=== PATIENT | female | born 1980 | race Caucasian/White ===

== ENCOUNTER 2018-03-09 20:28 | Emergency (ER) | payer OTHER ==
[~2018-03-09] VITALS: Ht 162.6 cm; Wt 73.5 kg
[2018-03-09] MEDS ORDERED: IV NORMAL SALINE 1,000ML 1,000 ML IV ONE (20:45)
[2018-03-09] MEDS ORDERED: KETOROLAC 30 MG/ML VIAL. IV ONE (20:45)
--- NOTE | 2018-03-09 20:53 | PHYS DOC ---
Past History Additional Past Medical Histor: Ovarian cyst, Hx of bowel obstruction at Past Surgical History: Tubal ligation Additional Past Surgical Histo: Abdominal surgery for bowel obstruction at Smoking: Non-smoker Alcohol Use: None Drug Use: None Adult General Chief Complaint Chief Complaint: BACK PAIN - NO INJURY HPI HPI 37-year-old female presents with left pelvic pain x 4 months which became worse today. Patient reports history of known "cyst between her ovary and rectum ". Patient reports has been following with CIRCULAR CLERK at . Patient reports the cyst was recently drained on 02/11/2018. Patient reports has been discussing with her CIRCULAR CLERK regarding removing the cyst. Denies fever or chills. Denies vaginal bleeding or discharge. Denies . Reports history of prior tubal ligation. Reports last menstrual period one week ago. Denies trauma. Reports took ibuprofen earlier today. Reports pain current too uncomfortable and therefore presents to the ED for evaluation. Review of Systems Review of Systems Constitutional: Denies fever or chills [] Respiratory: Denies cough or shortness of breath [] Cardiovascular: Denies chest pain or palpitations GI: Reports left lower abdominal pain; denies nausea, vomiting, or diarrhea [] : Denies dysuria or hematuria [] Musculoskeletal: Reports some back pain; denies joint pain [] Integument: Denies rash or skin lesions [] Neurologic: Denies headache or weakness Complete systems were reviewed and found to be within normal limits, except as documented in this note. Physical Exam Physical Exam Constitutional: Well developed, well nourished, uncomfortable, non-toxic appearance. [] HENT: Normocephalic, atraumatic, Eyes: Conjunctiva normal, no discharge. [] Neck: Normal range of motion, no meningeal signs Cardiovascular: Heart rate regular rhythm, no murmur [] Lungs & Thorax: Bilateral breath sounds clear to auscultation [] Abdomen: Soft, LLQ pain [employer] INSTALLER: Stock Patch Sawyer- RN, No CMT, minimal white discharge noted, left adnexal tenderness Skin: Warm, dry, no erythema, no rash. [] Back: No tenderness, no CVA tenderness. [] Extremities: No tenderness, no edema. [] Neurologic: Alert and oriented X 3, no focal deficits noted. [] Psychologic: Affect normal, judgement normal, mood normal. [] EKG EKG [] Radiology/Procedures Radiology/Procedures []PROCEDURE: US PELVIS W/TV US PELVIS W/TV Clinical Indication: LLQ PAIN X 4 MONTHS, ESSURE 2008. FEB 3 - CYST BETWEEN RECTUM AND UT PARTIALLY DRAINED AT [facility] Comparison: CT abdomen and pelvis with contrast, [facility], January 02, 2018. TECHNIQUE: Real-time ultrasound imaging of the pelvis using transabdominal and transvaginal window is performed. Findings: Uterus is identified transabdominally. Evaluation is limited due to overlying bowel gas. With transvaginal scanning the uterus measures 8.3 x 6.5 x 4.2 cm. The uterus is retroverted. Endometrial stripe is normal measuring 6 mm. Small hypoechoic fibroid in the left body of the uterus measures up to 1.3 cm. No pelvic free fluid is seen. There is normal blood flow in the ovaries. The ovaries are similar in size. Small follicles in the left ovary. Small right ovarian follicles. Dominant right follicle measures up to 1.7 cm. There is a heterogeneous hypoechoic mass of the left adnexa measuring 3.7 x 3.5 x 4.5 cm. The mass is similar in size to prior CT. The mass is well-circumscribed. Color Doppler interrogation is negative. IMPRESSION: 1. Heterogeneous hypoechoic well-circumscribed mass posterior and medial to the left adnexa is similar in size to prior CT. Per provided history this lesion may have recently been sampled, correlate to these results. 2. Small uterine fibroid. 3. Normal blood flow in the ovaries. 4. No pelvic free fluid. Course & Med Decision Making Course & Med Decision Making Pertinent Labs and Imaging studies reviewed. (See chart for details) Patient presents with history of left adnexal pain with radiation to back. Hx of known ovarian cyst. Denies trauma. Pain addressed. Pelvic exam performed. Chlamydia/Gonorrhea cultures pending. Offered empiric antibiotics which patient declined. Wet mount with clue cells consistent for bacterial vaginosis. Flagyl provided. Labs obtained and posted to chart. Pelvis ultrasound obtained with findings similar to prior CT results of left adnexal hypoechoic mass. Bilateral ovaries with good vascular flow. Patient stable for discharge with outpatient follow-up with PCP/[employer] INSTALLER. Discussed findings and plan with patient, who acknowledges understanding and agreement. Dragon Disclaimer Dragon Disclaimer This electronic medical record was generated, in whole or in part, using a voice recognition dictation system. Departure Departure: Impression: Primary Impression: Ovarian mass, left Additional Impression: Bacterial vaginosis Disposition: 01 HOME, SELF-CARE Condition: STABLE Referrals: KAMAR JAMES MD (PCP) Patient Instructions: Bacterial Vaginosis, [id number], Ovarian Cyst, Easy-to- Read Scripts Metronidazole (FLAGYL) 500 Mg Tablet 1 TAB PO BID for Vaginitis, #14 TAB Prov: BHUPENDRA SMITH DO 03/10/18 Acetaminophen With Codeine (TYLENOL WITH CODEINE #3 TABLET) 1 Each Tablet 1 TAB PO Q6HRS PRN for PAIN, #10 TAB Prov: BHUPENDRA SMITH DO 03/10/18 Problem Qualifiers BHUPENDRA SMITH DO Mar 09, 2018 20:53
[2018-03-09 21:22] LABS: BASO % 1 % (0-3); EOS # 0.1 x10^3/uL (0.0-0.7); EOS % 2 % (0-3); HEMATOCRIT 38.3 % (36.0-47.0); HEMOGLOBIN 13.1 g/dL (12.0-15.5); LYMPH # 1.7 x10^3/uL (1.0-4.8); LYMPH % 28 % (24-48); MEAN CORPUSCULAR HEMOGLOBIN 31 pg (25-35); MEAN CORPUSCULAR HGB CONC 34 g/dL (31-37); MEAN CORPUSCULAR VOLUME 90 fL (79-100); MONO # 0.3 x10^3/uL (0.0-1.1); MONO % 5 % (0-9); NEUT # 3.8 x10^3uL (1.8-7.7); NEUT % 64 % (31-73); PLATELET COUNT 194 x10^3/uL (140-400); RED BLOOD COUNT 4.25 x10^6/uL (3.50-5.40); RED CELL DISTRIBUTION WIDTH 12.6 % (11.5-14.5); WHITE BLOOD COUNT 5.9 x10^3/uL (4.0-11.0)
[2018-03-09] MEDS ORDERED: ONDANSETRON PF 4 MG/2 ML VIAL. IV ONE (21:30)
[2018-03-09 21:33] LABS: BILIRUBIN,URINE NEG (NEG); CLARITY,URINE HAZY; COLOR,URINE YELLOW; GLUCOSE,URINE NEG (NEG); NITRITE,URINE NEG (NEG); UROBILINOGEN,URINE 0.2 mg/dL (0.2 mg/dL)
[2018-03-09 21:34] LABS: BACTERIA,URINE FEW /HPF (0-FEW); SQUAMOUS EPITHELIAL CELL,UR MANY /LPF
[2018-03-09 22:32] LABS: ALBUMIN 3.1 g/dL (3.4-5.0); CALCIUM 7.2 mg/dL (8.5-10.1); GFR 62.7; MAGNESIUM 1.8 mg/dL (1.8-2.4); POTASSIUM 3.7 mmol/L (3.5-5.1); TOTAL BILIRUBIN 0.2 mg/dL (0.2-1.0); TOTAL PROTEIN 6.3 g/dL (6.4-8.2)
[2018-03-09 23:15] VITALS: BP 119/68
--- NOTE | 2018-03-09 23:26 | RAD ---
US PELVIS W/TV Clinical Indication: LLQ PAIN X 4 MONTHS, ESSURE 2009. DEC 3 - CYST BETWEEN RECTUM AND UT PARTIALLY DRAINED AT [facility] Comparison: CT abdomen and pelvis with contrast, [facility], January 02, 2018. TECHNIQUE: Real-time ultrasound imaging of the pelvis using transabdominal and transvaginal window is performed. Findings: Uterus is identified transabdominally. Evaluation is limited due to overlying bowel gas. With transvaginal scanning the uterus measures 8.3 x 6.5 x 4.2 cm. The uterus is retroverted. Endometrial stripe is normal measuring 6 mm. Small hypoechoic fibroid in the left body of the uterus measures up to 1.3 cm. No pelvic free fluid is seen. There is normal blood flow in the ovaries. The ovaries are similar in size. Small follicles in the left ovary. Small right ovarian follicles. Dominant right follicle measures up to 1.7 cm. There is a heterogeneous hypoechoic mass of the left adnexa measuring 3.7 x 3.5 x 4.5 cm. The mass is similar in size to prior CT. The mass is well-circumscribed. Color Doppler interrogation is negative. IMPRESSION: 1. Heterogeneous hypoechoic well-circumscribed mass posterior and medial to the left adnexa is similar in size to prior CT. Per provided history this lesion may have recently been sampled, correlate to these results. 2. Small uterine fibroid. 3. Normal blood flow in the ovaries. 4. No pelvic free fluid. Electronically signed by: Basilio Soto MD (03/09/2018 11:23 PM) [facility]
[2018-03-10] MEDS ORDERED: ACET-704 PO (00:04)
[2018-03-10] MEDS ORDERED: metroNIDAZOLE 500 MG TABLET ONE (00:40)
[2018-03-10] MEDS ORDERED: METR500T PO (00:41)
[2018-03-10] MEDS ORDERED: metroNIDAZOLE 500 MG TABLET PO ONE (00:45)
[2018-03-11 14:09] LABS: CHLAMYDIA PROBE Negative (Negative)
== END 2018-03-10 00:45 | disposition home or self-care (01) ==
LOC: ER 20:28
DX: N83.8 Other noninflammatory disorders of ovary, fallopian tube and broad ligament (principal); N76.0 Acute vaginitis; B96.89 Other specified bacterial agents as the cause of diseases classified elsewhere; D25.9 Leiomyoma of uterus, unspecified; Z98.51 Tubal ligation status
CPT/HCPCS: 36415; 76830; 76856; 80053; 81001; 81025; 83690; 83735; 85025; 87086; 87491; 87591; 96374; 96375; 99284; J1885; J2405; Q0111; J7030

== ENCOUNTER 2018-10-05 09:26 | Emergency (ER) | payer OTHER ==
[~2018-10-05] VITALS: Ht 157.5 cm; Wt 75.2 kg
[~2018-10-05 09:26] MED LIST: ACET-704 PO; METR500T PO
[2018-10-05] MEDS ORDERED: ONDANSETRON PF 4 MG/2 ML VIAL. IV ONE (10:00)
[2018-10-05] MEDS ORDERED: IV NORMAL SALINE 1,000ML 1,000 ML IV ONE (10:00)
[2018-10-05] MEDS ORDERED: MORPHINE SULFATE 2 MG/ML DISP.SYRIN. IV ONE (10:45)
[2018-10-05 10:53] LABS: BASO % 1 % (0-3); EOS # 0.1 x10^3/uL (0.0-0.7); EOS % 1 % (0-3); HEMATOCRIT 40.9 % (36.0-47.0); HEMOGLOBIN 13.8 g/dL (12.0-15.5); LYMPH # 1.4 x10^3/uL (1.0-4.8); LYMPH % 20 % (24-48); MEAN CORPUSCULAR HEMOGLOBIN 31 pg (25-35); MEAN CORPUSCULAR HGB CONC 34 g/dL (31-37); MEAN CORPUSCULAR VOLUME 92 fL (79-100); MONO # 0.4 x10^3/uL (0.0-1.1); MONO % 6 % (0-9); NEUT # 4.9 x10^3uL (1.8-7.7); NEUT % 72 % (31-73); PLATELET COUNT 200 x10^3/uL (140-400); RED BLOOD COUNT 4.47 x10^6/uL (3.50-5.40); RED CELL DISTRIBUTION WIDTH 12.4 % (11.5-14.5); WHITE BLOOD COUNT 6.8 x10^3/uL (4.0-11.0)
[2018-10-05 11:04] LABS: ALBUMIN 3.8 g/dL (3.4-5.0); CALCIUM 9.3 mg/dL (8.5-10.1); CREATININE 0.9 mg/dL (0.6-1.0); GFR 70.8; POTASSIUM 4.5 mmol/L (3.5-5.1); TOTAL BILIRUBIN 0.3 mg/dL (0.2-1.0); TOTAL PROTEIN 7.5 g/dL (6.4-8.2)
[2018-10-05 11:05] LABS: BACTERIA,URINE 0 /HPF (0-FEW); BILIRUBIN,URINE NEG (NEG); CLARITY,URINE CLEAR; COLOR,URINE YELLOW; GLUCOSE,URINE NEG (NEG); NITRITE,URINE NEG (NEG); RBC,URINE 0 /HPF (0-2); UROBILINOGEN,URINE 0.2 mg/dL (0.2 mg/dL)
[2018-10-05 11:06] LABS: SQUAMOUS EPITHELIAL CELL,UR OCC /LPF
[2018-10-05 11:43] VITALS: BP 131/72
--- NOTE | 2018-10-05 12:00 | PHYS DOC ---
Past History Past Medical History: Other Additional Past Medical Histor: Ovarian cyst, Hx of bowel obstruction at Past Surgical History: Tubal ligation Additional Past Surgical Histo: Abdominal surgery for bowel obstruction at Smoking: Non-smoker Alcohol Use: None Drug Use: None Adult General Chief Complaint Chief Complaint: PELVIC PAIN HPI HPI 37 showed female presents with lower abdominal pain. She has been having intermittent waves of pain over the last 1 week. It is much worse this morning. Patient has been diagnosed with PID in the past and it felt similar. She is concerned it could be something like this. She does not really have concern for STD as she is in a monogamous relationship, but the pain is similar so she would like to be checked. Patient denies nausea or vomiting. She denies dysuria or increased urinary frequency. Review of Systems Review of Systems Constitutional: Denies fever or chills [] Eyes: Denies change in visual acuity, redness, or eye pain [] HENT: Denies nasal congestion or sore throat [] Respiratory: Denies cough or shortness of breath [] Cardiovascular: No additional information not addressed in HPI [] GI: Suprapubic abdominal pain. Denies nausea, vomiting, bloody stools or diarrhea [] : Denies dysuria or hematuria [] Musculoskeletal: Denies back pain or joint pain [] Integument: Denies rash or skin lesions [] Neurologic: Denies headache, focal weakness or sensory changes [] Endocrine: Denies polyuria or polydipsia [] All other systems were reviewed and found to be within normal limits, except as documented in this note. Current Medications Current Medications Current Medications Medications (Trade) Dose Ordered Sig/[facility] Start Time Stop Time Status Last Admin Dose Admin Morphine Sulfate (Morphine 2mg Syringe) 2 mg 1X ONCE 10/05/18 10:45 10/05/18 10:46 DC 10/05/18 10:45 2 MG Ondansetron HCl (Zofran) 4 mg 1X ONCE 10/05/18 10:00 10/05/18 10:01 DC 10/05/18 10:45 4 MG Sodium Chloride 1,000 ml @ 1,000 mls/hr 1X ONCE 10/05/18 10:00 10/05/18 10:59 DC 10/05/18 10:46 1,000 MLS/HR Allergies Allergies Allergies Coded Allergies Type Severity Reaction Last Updated Verified acetaminophen Allergy Unknown 03/09/18 Yes meperidine Allergy Unknown 03/09/18 Yes oxycodone Allergy Unknown 03/09/18 Yes Physical Exam Physical Exam Constitutional: Well developed, well nourished, no acute distress, non-toxic appearance. [] HENT: Normocephalic, atraumatic, bilateral external ears normal, oropharynx moist, no oral exudates, nose normal. [] Eyes: PERRLA, EOMI, conjunctiva normal, no discharge. [] Neck: Normal range of motion, no tenderness, supple, no stridor. [] Cardiovascular:Heart rate regular rhythm, no murmur [] Lungs & Thorax: Bilateral breath sounds clear to auscultation [] Abdomen: Bowel sounds normal, soft, suprapubic tenderness, no masses, no pulsatile masses. [] Skin: Warm, dry, no erythema, no rash. [] Back: No tenderness, no CVA tenderness. [] Extremities: No tenderness, no cyanosis, no clubbing, ROM intact, no edema. [] Neurologic: Alert and oriented X 3, normal motor function, normal sensory function, no focal deficits noted. [] Psychologic: Affect normal, judgement normal, mood normal. [] Current Patient Data Vital Signs Vital Signs Date Time Temp Pulse Resp B/P (MAP) Pulse Ox O2 Delivery O2 Flow Rate FiO2 10/05/18 10:45 20 Lab Results Laboratory Tests Test 10/05/18 10:29 10/05/18 10:35 Urine Collection Type Unknown Urine Color Yellow Urine Clarity Clear Urine pH 7.0 Urine Specific [place] 1.010 Urine Protein Neg (NEG-TRACE) Urine Glucose (UA) Neg mg/dL (NEG) Urine Ketones (Stick) Neg mg/dL (NEG) Urine Blood Neg (NEG) Urine Nitrite Neg (NEG) Urine Bilirubin Neg (NEG) Urine Urobilinogen Dipstick 0.2 mg/dL (0.2 mg/dL) Urine Leukocyte Esterase Neg (NEG) Urine RBC 0 /HPF (0-2) Urine WBC 1-4 /HPF (0-4) Urine Squamous Epithelial Cells Occ /LPF Urine Bacteria 0 /HPF (0-FEW) White Blood Count 6.8 x10^3/uL (4.0-11.0) Red Blood Count 4.47 x10^6/uL (3.50-5.40) Hemoglobin 13.8 g/dL (12.0-15.5) Hematocrit 40.9 % (36.0-47.0) Mean Corpuscular Volume 92 fL (79-100) Mean Corpuscular Hemoglobin 31 pg (25-35) Mean Corpuscular Hemoglobin Concent 34 g/dL (31-37) Red Cell Distribution Width 12.4 % (11.5-14.5) Platelet Count 200 x10^3/uL (140-400) Neutrophils (%) (Auto) 72 % (31-73) Lymphocytes (%) (Auto) 20 % (24-48) L Monocytes (%) (Auto) 6 % (0-9) Eosinophils (%) (Auto) 1 % (0-3) Basophils (%) (Auto) 1 % (0-3) Neutrophils # (Auto) 4.9 x10^3uL (1.8-7.7) Lymphocytes # (Auto) 1.4 x10^3/uL (1.0-4.8) Monocytes # (Auto) 0.4 x10^3/uL (0.0-1.1) Eosinophils # (Auto) 0.1 x10^3/uL (0.0-0.7) Basophils # (Auto) 0.0 x10^3/uL (0.0-0.2) Sodium Level 141 mmol/L (136-145) Potassium Level 4.5 mmol/L (3.5-5.1) Chloride Level 104 mmol/L (98-107) Carbon Dioxide Level 27 mmol/L (21-32) Anion Gap 10 (6-14) Blood Urea Nitrogen 12 mg/dL (7-20) Creatinine 0.9 mg/dL (0.6-1.0) Estimated GFR (Cockcroft-Gault) 70.8 BUN/Creatinine Ratio 13 (6-20) Glucose Level 82 mg/dL (70-99) Calcium Level 9.3 mg/dL (8.5-10.1) Total Bilirubin 0.3 mg/dL (0.2-1.0) Aspartate Amino Transferase (AST) 25 U/L (15-37) Alanine Aminotransferase (ALT) 23 U/L (14-59) Alkaline Phosphatase 55 U/L (46-116) Total Protein 7.5 g/dL (6.4-8.2) Albumin 3.8 g/dL (3.4-5.0) Albumin/Globulin Ratio 1.0 (1.0-1.7) Microbiology 10/05/18 Wet Prep - Final, Complete EKG EKG [] Radiology/Procedures Radiology/Procedures [] Course & Med Decision Making Course & Med Decision Making Pertinent Labs and Imaging studies reviewed. (See chart for details) The patient appears to have bacterial vaginosis. I will treat her with 2 g of Flagyl in the ED. Her GC chlamydia are pending. She would not like to treat these prophylactically but rather wait for the results. We will call her if the results are positive. Patient has been diagnosed with fibroids in the past. Given that she is to weeks since her last menstrual cycle, she could be having some discomfort from the hormonal effects on her fibroids. The patient is stable for discharge at this time. [] Dragon Disclaimer Dragon Disclaimer This electronic medical record was generated, in whole or in part, using a voice recognition dictation system. Departure Departure: Impression: Primary Impression: Bacterial vaginosis Disposition: HOME, SELF-CARE Condition: STABLE Referrals: KAMAR JAMES MD (PCP) Patient Instructions: Bacterial Vaginosis, [id number] MURIEL LEE DO Oct 05, 2018 12:00
[2018-10-05] MEDS ORDERED: metroNIDAZOLE 500 MG TABLET ONE (12:03)
[2018-10-05] MEDS ORDERED: metroNIDAZOLE 500 MG TABLET PO ONE (12:15)
[2018-10-07 17:10] LABS: CHLAMYDIA PROBE Negative (Negative)
== END 2018-10-05 11:30 | disposition home or self-care (01) ==
LOC: ER 09:26
DX: N76.0 Acute vaginitis (principal); B96.89 Other specified bacterial agents as the cause of diseases classified elsewhere; Z98.51 Tubal ligation status; Z88.5 Allergy status to narcotic agent; Z88.8 Allergy status to other drugs, medicaments and biological substances
CPT/HCPCS: 80053; 81001; 85025; 87491; 87591; 96374; 96375; 99284; J2270; J2405; Q0111; 36415; J7030

== ENCOUNTER 2018-10-21 14:25 | Emergency (ER) | payer OTHER ==
--- NOTE | 2018-10-21 15:04 | EKG ---
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
[2018-10-21] MEDS ORDERED: IV NORMAL SALINE 1,000ML 1,000 ML IV ONE (15:45)
--- NOTE | 2018-10-21 16:03 | PHYS DOC ---
Past History Past Medical History: No Pertinent History Additional Past Medical Histor: Ovarian cyst, Hx of bowel obstruction at Past Surgical History: Tubal ligation Additional Past Surgical Histo: Abdominal surgery for bowel obstruction at Smoking: Non-smoker Alcohol Use: None Drug Use: None Adult General Chief Complaint Chief Complaint: SYNCOPE HPI HPI Patient is a 37 year old female who presents with complaint of syncopal episode. The patient states this happened shortly prior to arrival. The patient states while at work she went to wash her hands and felt very lightheaded. She states that she briefly passed out while in the bathroom. Found by coworkers initially unresponsive, however patient was responding when paramedics arrived to the scene. Patient noted that she felt sick to her stomach and felt very hot prior to onset of symptoms. Denies any history of cardiac disease. Does note that she has history of chronic pelvic inflammatory condition and is being evaluated at [facility] after she had been diagnosed with PID in March 2018. Currently notes that her symptoms have improved but does feel very weak and tir ed all over. Currently on hydrocodone for treatment of her pelvic pain. Denies any associated chest pain or shortness of breath currently. Review of Systems Review of Systems Constitutional: Denies fever or chills [] Eyes: Denies change in visual acuity, redness, or eye pain [] HENT: Denies nasal congestion or sore throat [] Respiratory: Denies cough or shortness of breath [] Cardiovascular: Syncope, denies chest pain or edema[] GI: Denies abdominal pain, nausea, vomiting, bloody stools or diarrhea [] : Denies dysuria or hematuria [] Musculoskeletal: Denies back pain or joint pain [] Integument: Denies rash or skin lesions [] Neurologic: Lightheadedness, denies headache, weakness or sensory changes [] All other systems were reviewed and found to be within normal limits, except as documented in this note. Current Medications Current Medications Current Medications Medications (Trade) Dose Ordered Sig/[facility] Start Time Stop Time Status Last Admin Dose Admin Sodium Chloride 1,000 ml @ 1,000 mls/hr 1X ONCE 10/21/18 15:45 10/21/18 16:44 Allergies Allergies Allergies Coded Allergies Type Severity Reaction Last Updated Verified acetaminophen Allergy Unknown 03/09/18 Yes meperidine Allergy Unknown 03/09/18 Yes oxycodone Allergy Unknown 12/29/18 Yes Physical Exam Physical Exam Constitutional: Alert, afebrile, no acute distress. [] HENT: Normocephalic, atraumatic, bilateral external ears normal, oropharynx moist, no oral exudates, nose normal. [] Eyes: PERRLA, EOMI, conjunctiva normal, no discharge. [] Neck: Normal range of motion, no tenderness, supple, no stridor. [] Cardiovascular:Heart rate regular rhythm, no murmur [] Lungs & Thorax: Bilateral breath sounds clear to auscultation [] Abdomen: Bowel sounds normal, soft, no tenderness, no masses, no pulsatile masses. [] Skin: Warm, dry, no erythema, no rash. [] Back: No tenderness, no CVA tenderness. [] Extremities: No tenderness, no cyanosis, no clubbing, ROM intact, no edema. [] Neurologic: Alert and oriented X 3, normal motor function, normal sensory function, no focal deficits noted. [] Current Patient Data Vital Signs Temperature 98.1, Blood pressure 147/71, heart rate 82, O2 sat 100% on room air Lab Results Laboratory Tests Test 10/21/18 16:00 White Blood Count 7.6 x10^3/uL Red Blood Count 4.29 x10^6/uL Hemoglobin 13.4 g/dL Hematocrit 39.4 % Mean Corpuscular Volume 92 fL Mean Corpuscular Hemoglobin 31 pg Mean Corpuscular Hemoglobin Concent 34 g/dL Red Cell Distribution Width 12.6 % Platelet Count 206 x10^3/uL Neutrophils (%) (Auto) 84 % Lymphocytes (%) (Auto) 11 % Monocytes (%) (Auto) 4 % Eosinophils (%) (Auto) 1 % Basophils (%) (Auto) 1 % Neutrophils # (Auto) 6.4 x10^3uL Lymphocytes # (Auto) 0.8 x10^3/uL Monocytes # (Auto) 0.3 x10^3/uL Eosinophils # (Auto) 0.1 x10^3/uL Basophils # (Auto) 0.0 x10^3/uL Urine Collection Type Unknown Urine Color Straw Urine Clarity Clear Urine pH 7.0 Urine Specific [place] 1.010 Urine Protein Neg Urine Glucose (UA) Neg mg/dL Urine Ketones (Stick) Neg mg/dL Urine Blood Neg Urine Nitrite Neg Urine Bilirubin Neg Urine Urobilinogen Dipstick 0.2 mg/dL Urine Leukocyte Esterase Trace Urine RBC 0 /HPF Urine WBC 1-4 /HPF Urine Squamous Epithelial Cells Mod /LPF Urine Bacteria Few /HPF Urine Mucus Slight /LPF Sodium Level 142 mmol/L Potassium Level 4.5 mmol/L Chloride Level 106 mmol/L Carbon Dioxide Level 27 mmol/L Anion Gap 9 Blood Urea Nitrogen 10 mg/dL Creatinine 1.0 mg/dL Estimated GFR (Cockcroft-Gault) 62.7 BUN/Creatinine Ratio 10 Glucose Level 106 mg/dL Calcium Level 8.6 mg/dL Total Bilirubin 0.2 mg/dL Aspartate Amino Transf (AST/SGOT) 17 U/L Alanine Aminotransferase (ALT/SGPT) 30 U/L Alkaline Phosphatase 49 U/L Total Protein 7.3 g/dL Albumin 3.8 g/dL Albumin/Globulin Ratio 1.1 Current Medications Medications (Trade) Dose Ordered Sig/[facility]der Route PRN Reason Start Time Stop Time Status Last Admin Dose Admin Sodium Chloride 1,000 ml @ 1,000 mls/hr 1X ONCE IV 10/21/18 15:45 10/21/18 16:44 DC 10/21/18 16:09 EKG EKG Interpreted by me: Heart rate 82, sinus rhythm, normal intervals, normal axis, no acute ST/T-wave abnormalities present[] Radiology/Procedures Radiology/[place] [address] IMAGING REPORT Signed PATIENT: ELIZABETH PANDYA MACCOUNT: [id number] : 1980 LOCATION: ER AGE: 37 SEX: F EXAM STATUS: REG ER ORD. PHYSICIAN: SHREYA SOLORZANO MD REASON: syncope PROCEDURE: PORTABLE CHEST 1V PORTABLE CHEST 1V Clinical indications: Syncope COMPARISON: None available. Findings: There is a nodular density of the lateral right lower lung zone which most likely represents a prominent nipple/areolar complex of the right breast. No acute lung infiltrate or pleural effusion or pulmonary edema or lung mass or pneumothorax is seen. The heart size, pulmonary vasculature, mediastinum and both julito are unremarkable. Impression: No acute radiographic abnormality is seen. Probable nipple/areolar complex shadow of the right breast overlying the lateral lower lung zone. This may be confirmed with a PA view chest x-ray and nipple marker to exclude a lung nodule. Electronically signed by: Ana Luisa Abebe MD (10/21/2018 4:46 PM) [place] [id number] DICTATED AND SIGNED BY: ANA LUISA ABEBE MD DATE: 10/21/18 1646 CC: SHREYA SOLORZANO MD; KAMAR JAMES MD ~ [place] [address] IMAGING REPORT Signed PATIENT: ELIZABETH PANDYA MACCOUNT: [id number] : 1980 LOCATION: ER AGE: 37 SEX: F EXAM STATUS: DEP ER ORD. PHYSICIAN: SHREYA SOLORZANO MD REASON: possible lung nodule seen on pcxr, rad sugg.placing nipple marker PROCEDURE: CHEST PA & LATERAL Exam: Chest 2 views INDICATION: Abnormal chest x-ray TECHNIQUE: Frontal and lateral views of chest. Comparisons: 10/21/2018 FINDINGS: The cardiomediastinal silhouette and pulmonary vessels are within normal limits. The lung and pleural spaces are clear. Previously seen rounded opacity correlates with nipple marker. IMPRESSION: Previously seen rounded opacity in the right lower lung correlates with nipple. No lung nodule identified. Electronically signed by: Aria Rios MD (10/21/2018 5:43 PM) [facility] DICTATED AND SIGNED BY: ARIA RIOS MD DATE: 10/21/18 1743 CC: SHREYA SOLORZANO MD; KAMAR JAMES MD ~ [] Course & Med Decision Making Course & Med Decision Making Pertinent Labs and Imaging studies reviewed. (See chart for details) Patient was given IV fluids in the emergency department. Blood work and EKG are unremarkable. The patient's symptoms appear consistent with vasovagal episode. At this time patient appears stable for discharge. Advised follow-up with primary doctor in the next 2-3 days for reevaluation and return to emergency department for any worsening symptoms.[] Dragon Disclaimer Dragon Disclaimer This electronic medical record was generated, in whole or in part, using a voice recognition dictation system. Departure Departure: Impression: Primary Impression: Vasovagal episode Disposition: 01 HOME, SELF-CARE Condition: IMPROVED Referrals: KAMAR JAMES MD (PCP) Patient Instructions: Syncope Additional Instructions: Follow-up with your primary doctor in the next 2 days for reevaluation. Return to the emergency department for any worsening symptoms. SHREYA SOLORZANO MD Oct 21, 2018 16:03
[2018-10-21 16:18] LABS: BASO % 1 % (0-3); EOS # 0.1 x10^3/uL (0.0-0.7); EOS % 1 % (0-3); HEMATOCRIT 39.4 % (36.0-47.0); HEMOGLOBIN 13.4 g/dL (12.0-15.5); LYMPH # 0.8 x10^3/uL (1.0-4.8); LYMPH % 11 % (24-48); MEAN CORPUSCULAR HEMOGLOBIN 31 pg (25-35); MEAN CORPUSCULAR HGB CONC 34 g/dL (31-37); MEAN CORPUSCULAR VOLUME 92 fL (79-100); MONO # 0.3 x10^3/uL (0.0-1.1); MONO % 4 % (0-9); NEUT # 6.4 x10^3uL (1.8-7.7); NEUT % 84 % (31-73); PLATELET COUNT 206 x10^3/uL (140-400); RED BLOOD COUNT 4.29 x10^6/uL (3.50-5.40); RED CELL DISTRIBUTION WIDTH 12.6 % (11.5-14.5); WHITE BLOOD COUNT 7.6 x10^3/uL (4.0-11.0)
[2018-10-21 16:31] LABS: ALBUMIN 3.8 g/dL (3.4-5.0); ALBUMIN/GLOBULIN RATIO 1.1 (1.0-1.7); CALCIUM 8.6 mg/dL (8.5-10.1); GFR 62.7; POTASSIUM 4.5 mmol/L (3.5-5.1); TOTAL BILIRUBIN 0.2 mg/dL (0.2-1.0); TOTAL PROTEIN 7.3 g/dL (6.4-8.2)
[2018-10-21 16:37] LABS: BILIRUBIN,URINE NEG (NEG); CLARITY,URINE CLEAR; COLOR,URINE STRAW; GLUCOSE,URINE NEG (NEG); NITRITE,URINE NEG (NEG); RBC,URINE 0 /HPF (0-2); UROBILINOGEN,URINE 0.2 mg/dL (0.2 mg/dL)
[2018-10-21 16:38] LABS: BACTERIA,URINE FEW /HPF (0-FEW); SQUAMOUS EPITHELIAL CELL,UR MOD /LPF
--- NOTE | 2018-10-21 16:49 | RAD ---
PORTABLE CHEST 1V Clinical indications: Syncope COMPARISON: None available. Findings: There is a nodular density of the lateral right lower lung zone which most likely represents a prominent nipple/areolar complex of the right breast. No acute lung infiltrate or pleural effusion or pulmonary edema or lung mass or pneumothorax is seen. The heart size, pulmonary vasculature, mediastinum and both julito are unremarkable. Impression: No acute radiographic abnormality is seen. Probable nipple/areolar complex shadow of the right breast overlying the lateral lower lung zone. This may be confirmed with a PA view chest x-ray and nipple marker to exclude a lung nodule. Electronically signed by: Ridge Abebe MD (10/21/2018 4:46 PM) [id number]
[2018-10-21 17:00] VITALS: BP 149/90
--- NOTE | 2018-10-21 17:47 | RAD ---
Exam: Chest 2 views INDICATION: Abnormal chest x-ray TECHNIQUE: Frontal and lateral views of chest. Comparisons: 10/21/2018 FINDINGS: The cardiomediastinal silhouette and pulmonary vessels are within normal limits. The lung and pleural spaces are clear. Previously seen rounded opacity correlates with nipple marker. IMPRESSION: Previously seen rounded opacity in the right lower lung correlates with nipple. No lung nodule identified. Electronically signed by: Aria Matthews MD (10/21/2018 5:43 PM) [facility]
== END 2018-10-21 17:41 | disposition home or self-care (01) ==
LOC: ER 14:25
DX: R55 Syncope and collapse (principal); R42 Dizziness and giddiness
CPT/HCPCS: 36415; 71045; 71046; 80053; 81001; 85025; 87086; 93005; 96360; 99285-25; J7030

== ENCOUNTER 2018-11-13 07:16 | Emergency (ER) | payer OTHER ==
[~2018-11-13] VITALS: Ht 157.5 cm; Wt 77.1 kg
[2018-11-13] MEDS ORDERED: KETOROLAC 60 MG/2 ML VIAL. IM ONE (08:15)
[2018-11-13 08:16] LABS: BASO % 0 % (0-3); EOS # 0.1 x10^3/uL (0.0-0.7); EOS % 1 % (0-3); HEMATOCRIT 38.9 % (36.0-47.0); HEMOGLOBIN 13.3 g/dL (12.0-15.5); LYMPH # 0.9 x10^3/uL (1.0-4.8); LYMPH % 16 % (24-48); MEAN CORPUSCULAR HEMOGLOBIN 31 pg (25-35); MEAN CORPUSCULAR HGB CONC 34 g/dL (31-37); MEAN CORPUSCULAR VOLUME 92 fL (79-100); MONO # 0.3 x10^3/uL (0.0-1.1); MONO % 5 % (0-9); NEUT # 4.4 x10^3uL (1.8-7.7); NEUT % 78 % (31-73); PLATELET COUNT 182 x10^3/uL (140-400); RED BLOOD COUNT 4.25 x10^6/uL (3.50-5.40); RED CELL DISTRIBUTION WIDTH 12.3 % (11.5-14.5); WHITE BLOOD COUNT 5.6 x10^3/uL (4.0-11.0)
[2018-11-13 08:29] LABS: PREG TEST PT QUAL NEGATIVE (NEG)
[2018-11-13 08:31] LABS: ALBUMIN 3.6 g/dL (3.4-5.0); ALBUMIN/GLOBULIN RATIO 0.9 (1.0-1.7); CALCIUM 8.3 mg/dL (8.5-10.1); CREATININE 1.1 mg/dL (0.6-1.0); GFR 55.9; POTASSIUM 4.1 mmol/L (3.5-5.1); TOTAL BILIRUBIN 0.3 mg/dL (0.2-1.0); TOTAL PROTEIN 7.4 g/dL (6.4-8.2)
[2018-11-13 08:34] LABS: BACTERIA,URINE 0 /HPF (0-FEW); BILIRUBIN,URINE NEG (NEG); CLARITY,URINE HAZY; COLOR,URINE YELLOW; GLUCOSE,URINE NEG (NEG); NITRITE,URINE NEG (NEG); SQUAMOUS EPITHELIAL CELL,UR OCC /LPF; UROBILINOGEN,URINE 0.2 mg/dL (0.2 mg/dL); WBC,URINE OCC /HPF (0-4)
[2018-11-13 09:08] VITALS: BP 133/48
--- NOTE | 2018-11-13 10:19 | ED.ADGEN ---
Past History Past Medical History: P.I.D., Other Additional Past Medical Histor: Ovarian cyst, Hx of bowel obstruction at Past Surgical History: Tubal ligation, Other Additional Past Surgical Histo: Abdominal surgery for bowel obstruction at Smoking: Non-smoker Alcohol Use: None Drug Use: None Adult General Chief Complaint Chief Complaint Abdominal pain HPI HPI Patient is a 38-year-old female with history of chronic abdominal pain/pelvic pain with pelvic inflammatory disease currently managed by [facility] with plans for outpatient MRI in 6 days with scheduled hysterectomy later this fall. Patient states her pain is pearly controlled for the past 2 days and coincides with her being on her menstrual period. Denies vaginal his oriental orthodox, fever, back pain, nausea vomiting. Patient took ibuprofen and hydrocodone for pain with limited relief. No other acute symptoms or complaints. Patient states she was last treated for vaginitis in the emergency department 3 weeks ago.[] Review of Systems Review of Systems ReView of symptoms as per history of present illness. All other review symptoms are negative. All other systems were reviewed and found to be within normal limits, except as documented in this note. Current Medications Current Medications Current Medications Medications (Trade) Dose Ordered Sig/Ender Start Time Stop Time Status Last Admin Dose Admin Ketorolac Tromethamine (Toradol Im) 60 mg 1X ONCE 11/13/18 08:15 11/13/18 08:19 DC 11/13/18 08:17 60 MG Allergies Allergies Allergies Coded Allergies Type Severity Reaction Last Updated Verified acetaminophen Allergy Unknown 03/09/18 Yes doxycycline Allergy Unknown 10/21/18 Yes meperidine Allergy Unknown 03/09/18 Yes oxycodone Allergy Unknown 03/09/18 Yes Physical Exam Physical Exam Constitutional: Well developed, well nourished, no acute distress.. [] HENT: Normocephalic, atraumatic, bilateral external ears normal, oropharynx moist, no oral exudates, nose normal. [] Eyes: PERRLA, EOMI, conjunctiva normal, no discharge. [] Neck: Normal range of motion, no tenderness, supple, no stridor. [] Cardiovascular:Heart rate regular rhythm, no murmur [] Lungs & Thorax: Bilateral breath sounds clear to auscultation [] Abdomen: Bowel sounds normal, soft, no abdominal pain, no tenderness.. [] Skin: Warm, dry, no erythema, no rash. [] Back: No tenderness, no CVA tenderness. [] Extremities: No tenderness, no edema. [] Neurologic: Alert and oriented X 3, normal motor function, normal sensory function, no focal deficits noted. [] Psychologic: Affect normal, judgement normal, mood normal. [] Current Patient Data Vital Signs Vital Signs Date Time Temp Pulse Resp B/P (MAP) Pulse Ox O2 Delivery O2 Flow Rate FiO2 11/13/18 09:08 82 18 133/48 (76) 100 Room Air 11/13/18 07:30 97.6 Lab Results Laboratory Tests Test 11/13/18 08:00 11/13/18 08:07 White Blood Count 5.6 x10^3/uL (4.0-11.0) Red Blood Count 4.25 x10^6/uL (3.50-5.40) Hemoglobin 13.3 g/dL (12.0-15.5) Hematocrit 38.9 % (36.0-47.0) Mean Corpuscular Volume 92 fL (79-100) Mean Corpuscular Hemoglobin 31 pg (25-35) Mean Corpuscular Hemoglobin Concent 34 g/dL (31-37) Red Cell Distribution Width 12.3 % (11.5-14.5) Platelet Count 182 x10^3/uL (140-400) Neutrophils (%) (Auto) 78 % (31-73) H Lymphocytes (%) (Auto) 16 % (24-48) L Monocytes (%) (Auto) 5 % (0-9) Eosinophils (%) (Auto) 1 % (0-3) Basophils (%) (Auto) 0 % (0-3) Neutrophils # (Auto) 4.4 x10^3uL (1.8-7.7) Lymphocytes # (Auto) 0.9 x10^3/uL (1.0-4.8) L Monocytes # (Auto) 0.3 x10^3/uL (0.0-1.1) Eosinophils # (Auto) 0.1 x10^3/uL (0.0-0.7) Basophils # (Auto) 0.0 x10^3/uL (0.0-0.2) Sodium Level 138 mmol/L (136-145) Potassium Level 4.1 mmol/L (3.5-5.1) Chloride Level 103 mmol/L (98-107) Carbon Dioxide Level 26 mmol/L (21-32) Anion Gap 9 (6-14) Blood Urea Nitrogen 12 mg/dL (7-20) Creatinine 1.1 mg/dL (0.6-1.0) H Estimated GFR (Cockcroft-Gault) 55.9 BUN/Creatinine Ratio 11 (6-20) Glucose Level 108 mg/dL (70-99) H Calcium Level 8.3 mg/dL (8.5-10.1) L Total Bilirubin 0.3 mg/dL (0.2-1.0) Aspartate Amino Transferase (AST) 19 U/L (15-37) Alanine Aminotransferase (ALT) 19 U/L (14-59) Alkaline Phosphatase 50 U/L (46-116) C-Reactive Protein 3.0 mg/L (0-3.3) Total Protein 7.4 g/dL (6.4-8.2) Albumin 3.6 g/dL (3.4-5.0) Albumin/Globulin Ratio 0.9 (1.0-1.7) L Serum Test, Qualitative Negative (NEG) Urine Collection Type Unknown Urine Color Yellow Urine Clarity Hazy Urine pH 6.0 Urine Specific [place] 1.015 Urine Protein Neg (NEG-TRACE) Urine Glucose (UA) Neg mg/dL (NEG) Urine Ketones (Stick) Neg mg/dL (NEG) Urine Blood Mod (NEG) Urine Nitrite Neg (NEG) Urine Bilirubin Neg (NEG) Urine Urobilinogen Dipstick 0.2 mg/dL (0.2 mg/dL) Urine Leukocyte Esterase Neg (NEG) Urine RBC 1-2 /HPF (0-2) Urine WBC Occ /HPF (0-4) Urine Squamous Epithelial Cells Occ /LPF Urine Bacteria 0 /HPF (0-FEW) Urine Mucus Slight /LPF EKG EKG [] Radiology/Procedures Radiology/Procedures [] Course & Med Decision Making Course & Med Decision Making Pertinent Labs and Imaging studies reviewed. (See chart for details) [Toradol given for pain. Basic labs reviewed. Patient describes exacerbation of chronic pain currently under management by [facility]. Recommend continued outpatient follow-up supportive care and PCP evaluation.] Final Impression Final Impression [#1 chronic pelvic pain #2 history of PID] Dragon Disclaimer Dragon Disclaimer This electronic medical record was generated, in whole or in part, using a voice recognition dictation system. MURIEL GUILLAUME DO Nov 13, 2018 10:19
== END 2018-11-13 09:12 | disposition home or self-care (01) ==
LOC: ER 07:16
DX: G89.29 Other chronic pain (principal); R10.2 Pelvic and perineal pain; N73.9 Female pelvic inflammatory disease, unspecified; Z98.51 Tubal ligation status; Z88.6 Allergy status to analgesic agent; Z88.1 Allergy status to other antibiotic agents; Z88.5 Allergy status to narcotic agent; Z88.8 Allergy status to other drugs, medicaments and biological substances
CPT/HCPCS: 36415; 80053; 81001; 84703; 85025; 86140; 96372; 99284; J1885

== ENCOUNTER 2018-12-14 18:15 | Emergency (ER) | payer OTHER ==
[~2018-12-14] VITALS: Ht 157.5 cm; Wt 86.6 kg
--- NOTE | 2018-12-14 18:21 | EKG ---
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
--- NOTE | 2018-12-14 19:07 | PHYS DOC ---
Past History Past Medical History: Hypotension, Other Additional Past Medical Histor: PID Past Surgical History: Other Additional Past Surgical Histo: INTESTONAL SURGERY AT , JAW SURGERY 2000, COILS FALLOPIAN TUBES 2008 Smoking: Non-smoker Alcohol Use: None Drug Use: None Adult General Chief Complaint Chief Complaint: SYNCOPE HPI HPI 38-year-old female presents with syncopal episode. The patient was feeling normal most of the day. She was at [facility] walking her fianc, she began to feel lightheaded and nauseated. The feeling came and went. The right couple times it got severe enough that she thought she might pass out. They left [facility] and were on their way to the hospital when she had a syncopal episode in the vehicle. She was unconscious for a short amount of time. She woke up in the vehicle before arrival to the ED. Patient has had one previous syncopal episode from heat exhaustion. It is not hot today and she has not been exerting herself. Patient's been eating and drinking normally. She is not on any diet, hernandes pplements, or other drug use. She did take 1 hydrocodone today for her PID pain. She was unsure of the dose. She's taken in the past and not had any issues. It is a prescribed medication to her. She denies fever or chills. She continues to be nauseated in the ED. Review of Systems Review of Systems Constitutional: Denies fever or chills [] Eyes: Denies change in visual acuity, redness, or eye pain [] HENT: Denies nasal congestion or sore throat [] Respiratory: Denies cough or shortness of breath [] Cardiovascular: No additional information not addressed in HPI [] GI: Lower abdominal pain, nausea. Denies vomiting, bloody stools or diarrhea [] : Denies dysuria or hematuria [] Musculoskeletal: Denies back pain or joint pain [] Integument: Denies rash or skin lesions [] Neurologic: Syncope, dizziness. Denies headache, focal weakness or sensory changes [] Endocrine: Denies polyuria or polydipsia [] All other systems were reviewed and found to be within normal limits, except as documented in this note. Allergies Allergies Allergies Coded Allergies Type Severity Reaction Last Updated Verified acetaminophen Allergy Unknown 03/09/18 Yes doxycycline Allergy Unknown 10/21/18 Yes meperidine Allergy Unknown 03/09/18 Yes oxycodone Allergy Unknown 03/09/18 Yes Physical Exam Physical Exam Constitutional: Well developed, well nourished, no acute distress, non-toxic appearance. [] HENT: Normocephalic, atraumatic, bilateral external ears normal, oropharynx dry, no oral exudates, nose normal. [] Eyes: PERRLA, EOMI, conjunctiva normal, no discharge. [] Neck: Normal range of motion, no tenderness, supple, no stridor. [] Cardiovascular:Heart rate regular rhythm, no murmur [] Lungs & Thorax: Bilateral breath sounds clear to auscultation [] Abdomen: Bowel sounds normal, soft, no tenderness, no masses, no pulsatile masses. [] Skin: Warm, dry, no erythema, no rash. [] Back: No tenderness, no CVA tenderness. [] Extremities: No tenderness, no cyanosis, no clubbing, ROM intact, no edema. [] Neurologic: Alert and oriented X 3, normal motor function, normal sensory function, no focal deficits noted. [] Psychologic: Affect normal, judgement normal, mood concerned. [] Current Patient Data Vital Signs Vital Signs Date Time Temp Pulse Resp B/P (MAP) Pulse Ox O2 Delivery O2 Flow Rate FiO2 12/14/18 18:29 97.6 79 18 98 Room Air EKG EKG Sinus rhythm, rate 75, normal axis, no ST elevations or depressions.[] Radiology/Procedures Radiology/Procedures [] Impressions: Exam: Chest one view INDICATION: Syncope TECHNIQUE: Frontal view of the chest Comparisons: 10/21/2018 FINDINGS: The cardiomediastinal silhouette and pulmonary vessels are within normal limits. The lung and pleural spaces are clear. IMPRESSION: No acute cardiopulmonary process. Electronically signed by: Tyrone Rios MD (12/14/2018 7:07 PM) [facility] DICTATED AND SIGNED BY: TYRONE RIOS MD DATE: 12/14/181906 CC: MURIEL LEE DO; KAMAR JAMES MD ~ Course & Med Decision Making Course & Med Decision Making Pertinent Labs and Imaging studies reviewed. (See chart for details) Patient's chest x-ray is unremarkable. The patient's labs are unremarkable. Her urinalysis is unremarkable. Her urine drug screen is positive for opiates. This could be an adverse drug reaction. The differential also includes vasovagal syncope, dehydration, viral illness, atypical migraine. I have no evidence of arrhythmia or cardiopulmonary cause. Her orthostatics are unremarkable. I have given her 1 L normal saline and 4 mg of Zofran. We will give her 30 mg of Toradol, 10 mg Reglan, and 25 mg Benadryl for her headache. She is stable for discharge at this time. [] Dragon Disclaimer Dragon Disclaimer This electronic medical record was generated, in whole or in part, using a voice recognition dictation system. Departure Departure: Impression: Primary Impression: Syncope Additional Impression: Headache Disposition: HOME/RESIDENCE PRIOR TO ADM Condition: STABLE Referrals: KAMAR JAMES MD (PCP) Patient Instructions: General Headache Without Cause, [id number], Syncope, [id number] Problem Qualifiers Primary Impression: Syncope Syncope type: unspecified Qualified Codes: R55 - Syncope and collapse Additional Impression: Headache Headache type: unspecified Headache chronicity pattern: acute headache Intractability: not intractable Qualified Codes: R51 - Headache MURIEL LEE DO Dec 14, 2018 19:06
[2018-12-14] MEDS ORDERED: IV NORMAL SALINE 1,000ML 1,000 ML IV ONE (19:30)
[2018-12-14] MEDS ORDERED: ONDANSETRON PF 4 MG/2 ML VIAL. IVP ONE (19:30)
[2018-12-14 20:00] LABS: BASO % 1 % (0-3); EOS # 0.1 x10^3/uL (0.0-0.7); EOS % 2 % (0-3); HEMATOCRIT 39.2 % (36.0-47.0); HEMOGLOBIN 13.5 g/dL (12.0-15.5); LYMPH # 1.7 x10^3/uL (1.0-4.8); LYMPH % 29 % (24-48); MEAN CORPUSCULAR HEMOGLOBIN 31 pg (25-35); MEAN CORPUSCULAR HGB CONC 35 g/dL (31-37); MEAN CORPUSCULAR VOLUME 91 fL (79-100); MONO # 0.4 x10^3/uL (0.0-1.1); MONO % 7 % (0-9); NEUT # 3.6 x10^3uL (1.8-7.7); NEUT % 62 % (31-73); PLATELET COUNT 238 x10^3/uL (140-400); RED CELL DISTRIBUTION WIDTH 12.5 % (11.5-14.5); WHITE BLOOD COUNT 5.8 x10^3/uL (4.0-11.0)
[2018-12-14 20:01] LABS: CALCIUM 8.8 mg/dL (8.5-10.1); GFR 62.4; POTASSIUM 4.3 mmol/L (3.5-5.1)
[2018-12-14 20:06] LABS: AMPHETAMINE/METHAMPHETAMINE NEG (NEG); BARBITURATES NEG (NEG); BENZODIAZEPINES NEG (NEG); CANNABINOIDS NEG (NEG); COCAINE NEG (NEG); METHADONE NEG (NEG); OPIATES POS (NEG); PHENCYCLIDINE NEG (NEG)
[2018-12-14 20:14] LABS: CLARITY,URINE CLEAR; COLOR,URINE YELLOW
[2018-12-14 20:15] LABS: BACTERIA,URINE 0 /HPF (0-FEW); BILIRUBIN,URINE NEG (NEG); GLUCOSE,URINE NEG (NEG); NITRITE,URINE NEG (NEG); RBC,URINE RARE /HPF (0-2); SQUAMOUS EPITHELIAL CELL,UR FEW /LPF; UROBILINOGEN,URINE 0.2 mg/dL (0.2 mg/dL); WBC,URINE 0 /HPF (0-4)
[2018-12-14] MEDS ORDERED: diphenhydrAMINE 50 MG/ML VIAL IVP ONE (21:00)
[2018-12-14] MEDS ORDERED: KETOROLAC 30 MG/ML VIAL. IV ONE (21:00)
[2018-12-14] MEDS ORDERED: METOCLOPRAMIDE HCL 10 MG/2 ML VIAL. IVP ONE (21:00)
[2018-12-14 21:26] VITALS: BP 117/76
== END 2018-12-14 21:30 | disposition home or self-care (01) ==
LOC: ER 18:15
DX: R55 Syncope and collapse (principal); R51 Headache; R10.30 Lower abdominal pain, unspecified; Z88.1 Allergy status to other antibiotic agents; Z88.5 Allergy status to narcotic agent
CPT/HCPCS: 36415; 71045; 80048; 80307; 81001; 84484; 85025; 93005; 96361; 96374; 96375; 99285; J1200; J1885; J2405; J2765; J7030

== ENCOUNTER → 2020-09-23 | Outpatient (CLI) | payer OTHER ==
[~2020-09-23] MED LIST changes: +IOHEXOL 300 MG/ML 75 ML VIAL. IV ONE
--- NOTE | 2020-09-23 15:17 | RAD ---
EXAMINATION: CT abdomen and pelvis with IV contrast. INDICATION:39 years, Female, right lower quadrant abdomen pain, nausea for 2 days. TECHNIQUE: Axial CT images of the abdomen and pelvis were obtained. Coronal and sagittal reformatted performed. COMPARISON: None. Exposure: One or more of the following individualized dose reduction techniques were utilized for thi s examination: 1. Automated exposure control 2. Adjustment of the mA and/or kV according to patient size 3. Use of iterative reconstruction technique. FINDINGS: LOWER CHEST: Unremarkable. ABDOMEN/PELVIS: Diffuse hepatic steatosis with focal fatty sparing at the dede hepatis. Subcentimeter hypodense lesi on in the left hepatic lobe, too small to characterize but favors benign etiology such as cyst. Taryn lithiasis without acute cholecystitis. No biliary ductal dilatation. Borderline splenomegaly measures up to 12.3 cm in length. Unremarkable pancreas. No adrenal nodule or hydronephrosis is either kidney . No bowel obstruction or thickening. Appendix is not seen. Cecum and ileocecal valve are seen in the r ight upper abdomen. Normal caliber abdominal aorta. Mesenteric arteries and portal vein are patent. N o pneumoperitoneum or ascites. No abdominal lymphadenopathy by size criteria. Unremarkable urinary bl adder. Uterus is not visualized. No suspicious pelvic masses. MUSCULOSKELETAL: No acute osseous process. IMPRESSION: 1. No acute intra-abdominal findings. 2. Diffuse hepatic steatosis. 3. Cholelithiasis. Electronically signed by: Mindi Carreon MD (09/23/2020 3:14 PM) [facility]
== END ==
LOC: RAD 13:48
PROVIDERS: ATTEND Nurse Practitioner Family
DX: K80.20 Calculus of gallbladder without cholecystitis without obstruction (principal); K76.0 Fatty (change of) liver, not elsewhere classified; K76.89 Other specified diseases of liver; R16.1 Splenomegaly, not elsewhere classified
CPT/HCPCS: 74177; Q9967

== ENCOUNTER 2020-11-18 22:21 | Emergency (ER) | payer OTHER ==
[~2020-11-18] VITALS: Ht 157.5 cm; Wt 75.2 kg
[~2020-11-18 22:21] MED LIST changes: -IOHEXOL 300 MG/ML 75 ML VIAL. IV ONE
--- NOTE | 2020-11-18 22:28 | PHYS DOC ---
Past History Past Medical History: Hypotension, Other Additional Past Medical Histor: PID Past Surgical History: Other Additional Past Surgical Histo: INTESTONAL SURGERY AT , JAW SURGERY 2000, COILS FALLOPIAN TUBES 2008 Smoking: Non-smoker Alcohol Use: None Drug Use: None Adult General HPI HPI Patient is a 40-year-old female who presents with a chief complaint of fast heartbeat. States she went to [facility] today and had an outpatient cholecystectomy that went well. States she went home at about 2, ate some food and took a nap. States that shortly after waking up she just felt weird, with some mild nausea and felt like her heart was beating fast. States she had felt like this before. States that she called her surgeon was told to go to the emergency department. Denies headache, change in vision, chest pain, shortness of breath, new or worsening abdominal pain, vomiting, dysuria, hematuria or blood in the stool. States she has eaten. States she has made urine and stool today. Denies any other medical history or cardiac history. Review of Systems Review of Systems Review of systems otherwise unremarkable except noted in HPI Allergies Allergies Allergies Coded Allergies Type Severity Reaction Last Updated Verified acetaminophen Allergy Intermediate 12/14/18 Yes doxycycline Allergy Intermediate 12/14/18 Yes meperidine Allergy Intermediate 12/14/18 Yes oxycodone Allergy Intermediate 12/14/18 Yes Physical Exam Physical Exam Constitutional: Well developed, well nourished, no acute distress, non-toxic appearance. [] HENT: Normocephalic, atraumatic, bilateral external ears normal, oropharynx moist, no oral exudates, nose normal. [] Eyes: conjunctiva normal, no discharge. [] Neck: Normal range of motion, no tenderness, supple, no stridor. [] Cardiovascular: Sinus tachycardia Lungs & Thorax: Bilateral breath sounds clear to auscultation [] Abdomen: soft, no tenderness, no masses, no pulsatile masses. [] Skin: Warm, dry, no erythema, no rash. [] Extremities: No tenderness, ROM intact, no edema. [] Neurologic: Alert and oriented X 3, no focal deficits noted. [] Psychologic: Affect normal, judgement normal, mood normal. [] EKG EKG [] Radiology/Procedures Radiology/Procedures [] Heart Score C/O Chest Pain: No Risk Factors: Risk Factors: DM, Current or recent (<one month) smoker, HTN, HLP, family history of CAD, obesity. Risk Scores: Risk Factors: DM, Current or recent (<one month) smoker, HTN, HLP, family history of CAD, obesity. Course & Med Decision Making Course & Med Decision Making Patient is a 40-year-old female who presents with what she describes as feels like her heart is racing fast Vital signs notable for sinus tachycardia. Physical exam noted above. Placed on the monitor with IV placed with IV fluid resuscitation begun. Given pain medicine. Given nausea/anxiety medicine. EKG not concerning. Chest x-ray not concerning. On reassessment patient feeling much better with vital signs improved after fluid resuscitation and medications. Discussed all findings with patient. Advised to take all of her medications as prescribed. Advised to call primary care physician and surgeon in the morning to update on ED visit. Gave return precautions to the ED. Family grateful, verbalized understanding and agreed with plan of discharge. Dragon Disclaimer Dragon Disclaimer This electronic medical record was generated, in whole or in part, using a voice recognition dictation system. Departure Departure: Impression: Primary Impression: Postoperative tachycardia and tachypnea Disposition: 01 HOME / SELF CARE / HOMELESS Condition: GOOD Referrals: KAMAR JAMES MD (PCP) Patient Instructions: Nonspecific Tachycardia Additional Instructions: Thank you for coming into the emergency department tonight and allowing us to take care of you. Please read the attached information. Please be sure to eat nutritious meals and drink plenty of fluids as you appear to be a little dehydrated here in the emergency department. Please be sure to take all your medications as prescribed. Please call your primary care physician and your surgeon in the morning to update them on your ED visit. Please come back to the ED with new or concerning symptoms as discussed. EDUARDO DAI MD Nov 18, 2020 22:27
[2020-11-18] MEDS ORDERED: IV RINGERS SOLUTION,LACTATED 1,000 ML IV ONE (22:45)
[2020-11-18] MEDS ORDERED: MIDAZOLAM HCL PF 5 MG/5 ML VIAL. IV ONE (22:45)
[2020-11-18] MEDS ORDERED: ONDANSETRON PF 4 MG/2 ML VIAL. IVP ONE (22:45)
[2020-11-18 23:32] LABS: BILIRUBIN,URINE NEG (NEG); CLARITY,URINE CLEAR; COLOR,URINE YELLOW; GLUCOSE,URINE 500 mg/dL (NEG); NITRITE,URINE NEG (NEG); UROBILINOGEN,URINE 0.2 mg/dL (0.2 mg/dL)
[2020-11-18 23:33] LABS: BACTERIA,URINE 0 /HPF (0-FEW); RBC,URINE 0 /HPF (0-2); SQUAMOUS EPITHELIAL CELL,UR FEW /LPF; WBC,URINE 0 /HPF (0-4)
[2020-11-19 00:28] VITALS: BP 136/66
--- NOTE | 2020-11-19 00:28 | RAD ---
Chest AP portable at 12:09 AM: Reason for examination: Postop. Comparison is made to previous study dated 10/21/2018. The heart size is normal. Mediastinum is unremarkable. Lung yanez show bandlike density in the left lower lobe and linear densities in the right lower lobe consistent with atelectasis. No consolidated infiltrates or pleural effusions are seen. No acute bony abnormalities are seen. Impression: Atelectasis at the lung bases. Electronically signed by: Lula Colvin MD (11/19/2020 12:26 AM) [facility]
[2020-11-19] MEDS ORDERED: IV RINGERS SOLUTION,LACTATED 1,000 ML IV ONE (00:30)
[2020-11-19] MEDS ORDERED: HYDROcodone/APAP 5/325MG 1 TAB TABLET PO ONE (00:45)
[2020-11-19] MEDS ORDERED: ONDANSETRON 4MG ODT 4TABLET STARTPACK. PO ONE ×2 (00:46→01:00)
--- NOTE | 2020-11-19 01:18 | EKG ---
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
== END 2020-11-19 00:54 | disposition home or self-care (01) ==
LOC: ER 22:21
DX: I97.89 Other postprocedural complications and disorders of the circulatory system, not elsewhere classified (principal); R06.82 Tachypnea, not elsewhere classified; Z90.49 Acquired absence of other specified parts of digestive tract; Z88.1 Allergy status to other antibiotic agents; Z88.5 Allergy status to narcotic agent; Z88.8 Allergy status to other drugs, medicaments and biological substances
CPT/HCPCS: 71045; 81001; 93005; 96361; 96374; 96375; 99285; J2250; J2405; J7120; Q0162